=== PATIENT | female | born 1990 | race African-American/Black ===

== ENCOUNTER 2018-09-13 19:04 | Emergency (ER) | payer SELFPAY ==
[~2018-09-13] VITALS: Ht 172.7 cm; Wt 68.0 kg
--- NOTE | 2018-09-13 19:11 | NUR ---
Patient presents with officers for medical clearance. Has no complaints at this time, appears calm and a bit sad. Expresses she does not wish to be evaluated by ERMD. Willingness to talk though.
[2018-09-13 19:12] VITALS: BP 116/79
--- NOTE | 2018-09-13 19:28 | NUR ---
ED Nurse Note: PATIENT CURRENTLY BEING EVALUATED BY ER PROVIDER.
--- NOTE | 2018-09-13 19:33 | Emergency Room Report ---
History of Present Illness General Chief Complaint: Medical Clearance Source: Patient Present Illness HPI 27-year-old female presents to the emergency department for medical clearance for incarceration. Pt refuses medical evaluation, after reassurance pt. allowed basic exam. Denies pain but she does mention she is . Does not want evaluation of . reports just found out [facility], no [facility] thus far. Pt. denies abdominal pain or vaginal D/C. pt. reports she does not want any evaluation of the . She states " I dont care what goes on with it, I am not keeping it". no other medical complaints or symptoms at this time. Denies chest pain, palpitations, sudden onset headache, nausea/vomiting, open wounds or bleeding. Allergies: Coded Allergies: No Known Allergies (Unverified , 09/13/18) Patient History Past Medical History: see triage record Past Surgical History: none Pertinent Family History: none Now: Yes : 5 Para: 3 Reviewed Nursing Documentation: PMH: Agreed; PSxH: Agreed Nursing Documentation-PMH Past Medical History: No Stated History Review of Systems All Other Systems: negative except mentioned in HPI Physical Exam Vital Signs Date Time Temp Pulse Resp B/P (MAP) Pulse Ox O2 Delivery O2 Flow Rate FiO2 09/13/18 19:05 98.4 104 16 116/79 (91) 99 Room Air Sp02 EP Interpretation: reviewed, normal General Appearance: no apparent distress, alert, GCS 15, non-toxic Head: normocephalic, atraumatic Eyes: bilateral eye normal inspection, bilateral eye PERRL ENT: hearing grossly normal, normal voice Neck: full range of motion, no bony tend Respiratory: lungs clear, normal breath sounds, no respiratory distress, no accessory muscle use, no wheezing, speaking full sentences Cardiovascular #1: regular rate, rhythm, normal capillary refill, tachycardia Gastrointestinal: normal bowel sounds, non tender, soft, non-distended, no guarding, other - Not obviously gravid Musculoskeletal: back normal, gait/station normal, normal range of motion, non- tender Neurologic: alert, oriented x3, responsive, motor strength/tone normal, sensory intact, speech normal, grossly normal Psychiatric: judgement/insight normal, no suicidal/homicidal ideation Lymphatic: no adenopathy Medical Decision Making PA Attestation Dr. Joiner Is my supervising Physician whom patient management has been discussed with. Diagnostic Impression: Primary Impression: Medical clearance for incarceration ER Course 27-year-old female presents to the emergency department for medical clearance for incarceration. Pt refuses medical evaluation, after reassurance pt. allowed basic exam. Denies pain but she does mention she is . Does not want evaluation of . reports just found out [facility], no [facility] thus far. Pt. denies abdominal pain or vaginal D/C. pt. reports she does not want any evaluation of the . She states " I dont care what goes on with it, I am not keeping it". no other medical complaints or symptoms at this time. Denies chest pain, palpitations, sudden onset headache, nausea/vomiting, open wounds or bleeding. dDx considered but are not limited to Head Trauma, HI, ACS, SI/HI, URI, SAH, Fractures, Dislocations, Tazer barbs, Abrasions. Vital signs: Tachy @ 104bpm, otherwise VS are WNL, pt. is afebrile H&PE are most consistent with: normal limited physical examination. ORDERS: none required at this time, the diagnosis is clinical ED INTERVENTIONS: None required at this time. DISCHARGE: At this time pt. is stable for d/c to law enforcement. Will provide printed patient care instructions, and any necessary prescriptions. Care plan and follow up instructions have been discussed with the patient prior to discharge. Last Vital Signs Date Time Temp Pulse Resp B/P (MAP) Pulse Ox O2 Delivery O2 Flow Rate FiO2 09/13/18 19:12 104 16 Room Air 09/13/18 19:12 98.4 116/79 99 Disposition: HOME, SELF-CARE Condition: Stable Departure Forms: [facility] Clearance Patient Instructions: Medical Screening Exam Additional Instructions: Take any previously prescribed medications as directed. Follow up with a Primary Care Provider in 3-5 days,and OBGYN even if your symptoms have resolved. Return sooner to ED if new symptoms occur, or current symptoms become worse. - Please note that this Emergency Department Report was dictated using [employer] technology software, occasionally this can lead to erroneous entry secondary to interpretation by the dictation equipment. Eliane Gutierrez Sep 13, 2018 19:33
--- NOTE | 2018-09-13 19:39 | NUR ---
[facility]
== END 2018-09-13 19:39 | disposition home or self-care (01) ==
LOC: EMR 19:32
DX: O26.90 Pregnancy related conditions, unspecified, unspecified trimester (principal); Z3A.00 Weeks of gestation of pregnancy not specified; R00.0 Tachycardia, unspecified
CPT/HCPCS: 99281